=== PATIENT | female | born 1970 | race Caucasian/White ===

== ENCOUNTER 2018-08-28 11:56 | Emergency (ER) | payer BC ==
[~2018-08-28] VITALS: Ht 172.7 cm; Wt 86.4 kg
[~2018-08-28 11:56] MED LIST: AUGMENTIN 875-1 EAC1 PO
[2018-08-28] MEDS ORDERED: LEVOTHYROXIN0.088 MG PO (12:05)
[2018-08-28] MEDS ORDERED: LISINOPRIL20 MG PO (12:05)
[2018-08-28 13:29] LABS: HEMATOCRIT 39.4 % (37.0-47.0); HEMOGLOBIN 13.1 g/dL (12.5-16.0); MEAN CELL VOLUME 89 fl (78-100); MEAN CORPUSCULAR HEMOGLOBIN 29 pg (27-31); MEAN CORPUSCULAR HGB CONC 33 g/dL (33-37); MEAN PLATELET VOLUME 10.5 fl (7.4-10.4); PLATELET COUNT 207 K/mm3 (130-400); RED BLOOD COUNT 4.45 M/mm3 (4.10-5.30); RED CELL DISTRIBUTION WIDTH 12.9 % (11.5-14.5); WHITE BLOOD COUNT 7.8 K/mm3 (4.8-10.8)
[2018-08-28 13:35] LABS: URINE APPEARANCE HAZY; URINE COLOR YELLOW
[2018-08-28 13:36] LABS: ALBUMIN 4.6 g/dL (3.5-5.0); CALCIUM 9.1 mg/dL (8.4-10.2); POTASSIUM 3.8 mmol/L (3.6-5.0); TOTAL BILIRUBIN 0.6 mg/dL (0.2-1.3)
[2018-08-28 13:36] LABS: URINE BILIRUBIN NEGATIVE (NEGATIVE); URINE BLOOD TRACE (NEGATIVE); URINE GLUCOSE NEGATIVE (NEGATIVE); URINE KETONE NEGATIVE (NEGATIVE); URINE LEUKOCYTE ESTERASE NEGATIVE (NEGATIVE); URINE MUCUS PRESENT (NOT PRESENT); URINE NITRATE NEGATIVE (NEGATIVE); URINE PROTEIN(semi-quant) TRACE mg/dL (NEGATIVE); URINE UROBILINOGEN NORMAL (NORMAL)
[2018-08-28 13:48] LABS: LYMPHOCYTE 6 % (20-51); MONOCYTE 4 % (3-10); NEUTROPHILS 90 % (42-75)
[2018-08-28 16:19] VITALS: BP 118/60
== END 2018-08-28 16:20 | disposition short-term general hospital (02) ==
LOC: ED 11:56
PROVIDERS: Nurse Practitioner Primary Care
DX: N20.0 Calculus of kidney (principal); I10 Essential (primary) hypertension; Z98.890 Other specified postprocedural states
CPT/HCPCS: J1885; J2270; J2405; Q9967

== ENCOUNTER → 2021-01-01 | Outpatient (REF) ==
[~2021-01-01] MED LIST changes: +LEVOTHYROXIN0.088 MG PO; +LISINOPRIL20 MG PO
== END ==
LOC: LAB 08:52
DX: Z01.89 Encounter for other specified special examinations (principal)

== ENCOUNTER → 2021-10-15 | Day surgery (SDC) | payer OTHER | END | disposition home or self-care (01) | LOC: MSO 07:05 | DX: Z12.11 Encounter for screening for malignant neoplasm of colon (principal); K57.30 Diverticulosis of large intestine without perforation or abscess without bleeding | CPT/HCPCS: 00812; J2704; J7120 ==

== ENCOUNTER → 2023-04-29 | Outpatient (CLI) | payer OTHER | LOC: MAMMO 10:51 | DX: Z12.31 Encounter for screening mammogram for malignant neoplasm of breast (principal); N64.89 Other specified disorders of breast ==

== ENCOUNTER → 2023-05-05 | Outpatient (CLI) | payer OTHER | LOC: MAMMO 07:00 | DX: N60.02 Solitary cyst of left breast (principal); R92.8 Other abnormal and inconclusive findings on diagnostic imaging of breast ==